=== PATIENT | female | born 1950 ===

== ENCOUNTER 2016-09-05 16:39 | Emergency (ER) | payer MEDICARE, MEDICAID ==
[2016-09-05 16:39] VITALS: BMI 25.7
[2016-09-05 16:48] VITALS: BP 171/80; RESP 20
--- NOTE | 2016-09-05 18:00 | C.PDOC ---
Time Seen by Provider: 09/05/16 17:46 Chief Complaint (Nursing): ENT Problem History Per: Patient, Family Onset/Duration Of Symptoms: Hrs (today) Current Symptoms Are (Timing): Better Location Of Bleeding: Right Nare Severity: Moderate Additional History Per: Prior Records Past Medical History Reviewed: Historical Data, Nursing Documentation, Vital Signs Vital Signs: Last Vital Signs Temp 98.1 F 09/05/16 16:46 Pulse 91 H 09/05/16 16:46 Resp 20 09/05/16 16:46 BP 171/80 H 09/05/16 16:46 Pulse Ox 98 09/05/16 18:00 - Medical History PMH: Arthritis, CAD, Depression, Diabetes, HTN, Hypercholesterolemia, Rheumatoid Arthritis Surgical History: Cholecystectomy, Pacemaker (2013) - [employer] Vacc[employer] Procedures INITIAL INSERT TRANS LEADS INTO [employer] (07/30/13) INITIAL INSERTION OF DUAL-CHAMBER DEVICE (07/30/13) Family History: States: Unknown Family Hx - Social History Hx Tobacco Use: No Hx Alcohol Use: No Hx Substance Use: No - Immunization History Hx Tetanus Toxoid Vaccination: No Hx Influenza Vaccination: Yes Hx Pneumococcal Vaccination: No Review Of Systems Except As Marked, All Systems Reviewed And Found Negative. Constitutional: Negative for: Fever, Weakness ENT: Negative for: Throat Pain Cardiovascular: Negative for: Chest Pain Respiratory: Negative for: Cough, Shortness of Breath, Hemoptysis Gastrointestinal: Negative for: Vomiting, Abdominal Pain Musculoskeletal: Negative for: Neck Pain Skin: Negative for: Rash Neurological: Negative for: Weakness, Numbness, Seizures, Altered Mental Status Physical Exam - Physical Exam Appears: Non-toxic, No Acute Distress Skin: Normal Color, Warm, Dry, No Rash Head: Atraumatic, Normacephalic Eye(s): bilateral: Normal Inspection, PERRL, EOMI Nose: No Septal Hematoma, Other (some blood in right nare, but no active bleeding. Source not visualized.) Oral Mucosa: Moist Throat: Normal Neck: Normal ROM, Supple Cardiovascular: Rhythm Regular Respiratory: Normal Breath Sounds, No Accessory Muscle Use Gastrointestinal/Abdominal: Soft, No Tenderness Extremity: Normal ROM Neurological/Psych: Oriented x3, Normal Motor, Normal Sensation ED Course And Treatment O2 Sat by Pulse Oximetry: 98 Pulse Ox Interpretation: Normal Progress Note: Pt treated with Afrin nasal spray. No bleeding in ED. Reassessment Condition: Improved Disposition Counseled Patient/Family Regarding: Diagnosis, Need For Followup - Disposition Referrals: Angus Barker MD [Staff Provider] - Jennifer Colbert MD [Family Provider] - Disposition: HOME/ ROUTINE Disposition Time: 19:29 Condition: IMPROVED Additional Instructions: Follow up with an ENT doctor within 1-2 days for further evaluation and treatment. Return to the ER if you develop bleeding that does not stop after 10 minutes of direct pressure, dizziness, worsening of symptoms or if you have any other concerns. Instructions: Nosebleed (ED) Print Language: AFGHAN - Clinical Impression Clinical Impression: Right-sided epistaxis
[2016-09-05] MEDS ORDERED: Oxymetazoline 0.05% Nasal Spray (30 ml) NS STA (18:02)
[2016-09-05 19:48] VITALS: PULSE 87; TEMP 98; O2SAT 96
== END 2016-09-05 19:46 | disposition home or self-care (01) ==
LOC: C.ER 16:39
DX: R04.0 Epistaxis (principal)